=== PATIENT | male | born 1975 | race African-American/Black ===

== ENCOUNTER 2018-05-09 21:50 | Emergency (ER) | payer OTHER, MEDICAID ==
[~2018-05-09] VITALS: Ht 180.3 cm; Wt 188.2 kg
--- NOTE | 2018-05-09 21:50 | NUR ---
Patient BIBA BLS, transferred to bed 4. RN evaluating patient at bedside.
[2018-05-09 21:57] VITALS: BP 131/57
--- NOTE | 2018-05-09 22:00 | NUR ---
PT BIBA C/O BILATERAL LEG EDEMA. PT STATES THAT 2011 HE WAS DX W/ LEG EDEMA, 2009 HE WAS DX WITH SCHIZOPHRENIA AND BIPOLAR, HE HAS BEEN HEARING VOICES SINCE 2009 TO KILL HIMSELF, FOR THE LAST 2 MONTHS THE VOICES HAVE BEEN TELLING HIM TO INGEST ALL HIS MEDICATION AND KILL HIMSELF. --DENIES CP, SOB, LOC, N/V/D. AAOX4. --EDEMA, NON-PITTING, BILATERAL LOWER EXTREMITIES, WARM DRY. PMH: HTN, BIPOLAR, SCHIZOPHRENIA, LOWER EXT. EDEMA
[2018-05-09] MEDS ORDERED: KETOROLAC 60 MG/2 ML VIAL IM ONE (22:05)
--- NOTE | 2018-05-09 22:08 | NUR ---
TelePsych consult ordered as requested by Dr. Gumzan.
--- NOTE | 2018-05-09 22:20 | NUR ---
PT STATES HE IS HOMELESS BUT IS WORKING WITH A SOCIAL WORKING AND WILL BE GETTING HIS "SECTION 8 VOUCHURE VERY SOON". SAILAJA CARLISLE MADE AWARE OF PT STATUS AND SI.
[2018-05-09 22:27] LABS: BASOPHILS # (AUTO) 0.1 K/uL (0.00-0.22); BASOPHILS % (AUTO) 0.6 % (0.0-2.0); EOSINOPHILS # (AUTO) 0.3 K/uL (0-0.4); EOSINOPHILS % (AUTO) 2.8 % (0.0-4.0); HEMATOCRIT 43.1 % (36-52); HEMOGLOBIN 13.8 g/dL (12.0-18.0); LYMPHOCYTES # (AUTO) 2.2 K/uL (2.0-11.5); LYMPHOCYTES % (AUTO) 20.8 % (20.5-51.1); MEAN CORPUSCULAR HEMOGLOBIN 26 pg (27-31); MEAN CORPUSCULAR HGB CONC 32 g/dL (33-37); MEAN CORPUSCULAR VOLUME 81.9 fL (80-94); MONOCYTES # (AUTO) 0.8 K/uL (0.8-1.0); MONOCYTES % (AUTO) 7.9 % (1.7-9.3); NEUTROPHILS # (AUTO) 7.2 K/uL (1.8-7.7); NEUTROPHILS % (AUTO) 67.9 % (42.2-75.2); PLATELET COUNT (AUTO) 193 K/uL (140-450); RED BLOOD CELL COUNT(AUTO) 5.26 MIL/uL (4.20-6.10); RED CELL DISTRIBUTION WIDTH 14.6 % (11.6-13.7); WHITE BLOOD COUNT (AUTO) 10.6 K/uL (4.8-10.8)
[2018-05-09 22:28] LABS: APPEARANCE,URINE CLEAR (CLEAR); BILIRUBIN,URINE NEGATIVE (NEGATIVE); BLOOD, URINE NEGATIVE (NEGATIVE); COLOR,URINE YELLOW (YELLOW); LEUKOCYTE ESTERASE ,URINE TRACE (NEGATIVE); NITRITE, URINE NEGATIVE (NEGATIVE); PH,URINE 8.5 (5.0-9.0); UGLUCOSE NEGATIVE (NEGATIVE)
--- NOTE | 2018-05-09 22:30 | NUR ---
PT PROVIDED JUICE AND ICE WATER UPON REQUEST.
[2018-05-09 22:34] LABS: BARBITURATE, URINE NEG. ng/ml (NEG <=200); BENZODIAZEPINE, URINE NEG. ng/mL (NEG <=200); CANNABINOID, URINE NEG. ng/mL (NEG <=50); COCAINE, URINE NEG. ng/mL (NEG <=300); OPIATE, URINE NEG. ng/mL (NEG <=2000); PHENCYCLIDINE SCREEN,URINE NEG. ng/mL (NEG <=25)
[2018-05-09 22:42] LABS: RBC,URINE NONE SEEN /HPF (0-5); WBC,URINE 0-5 (RARE) /HPF (0-5)
[2018-05-09 22:55] LABS: TOTAL BILIRUBIN 0.6 mg/dL (0.0-1.0)
[2018-05-09 22:56] LABS: CREATININE 1.2 mg/dL (0.7-1.3); GFR ARICAN-AMERICAN 86 mL/min (>90); GLUCOSE 128 mg/dL (74-106); UREA NITROGEN, BLOOD 15 mg/dL (7-18)
[2018-05-09 23:04] LABS: ALBUMIN 3.3 g/dL (3.4-5.0); ANION GAP 11.6 (8-16); ASPARTATE AMINOTRANSFERASE 15 U/L (15-37); CARBON DIOXIDE 29.2 mmol/L (21-32); CHLORIDE 105 mmol/L (98-107); POTASSIUM 3.8 mmol/L (3.5-5.1); SODIUM SERUM 142 mmol/L (136-145)
[2018-05-09 23:05] LABS: ACETAMINOPHEN < 0.5 ug/ml (10-30); SALICYLATE < 2.8 mg/dL (2.8-20.0)
--- NOTE | 2018-05-09 23:24 | NUR ---
Packet has been received, need updated facesheet/insurance to begin calls for voluntary placement.
--- NOTE | 2018-05-10 00:36 | NUR ---
Patient intake/packet has been referred to [facility] 2nd floor. Spoke with chief meteorologist Reagan, packet will be reviewd and chief meteorologist will call and let me know if [facility] can accommodate patient.
--- NOTE | 2018-05-10 00:49 | NUR ---
SPOKE TO [facility] REP, REP TO FAX A DOCUMENT. SAILAJA CARLISLE MADE AWARE
--- NOTE | 2018-05-10 01:27 | NUR ---
CALL FROM ERNESTINE BRAGG AT [facility], FACILITY WILL BE ACCEPTING PT UNDER DR. COCHRAN AND DR. MORENO [facility], SECOND FLOOR, RM 227. REPORT PROVIDED.
--- NOTE | 2018-05-10 02:20 | NUR ---
PT SPEAKING WITH TELEPSYCH DR. RANGEL AT THIS TIME.
--- NOTE | 2018-05-10 02:38 | NUR ---
CALL FROM TELEPSYCH PSYCHIATRIST DR. RANGEL, RECOMMENDATION IS TO BE ADMITTED FOR SI UNTIL STABLE. ER MD MADE AWARE.
--- NOTE | 2018-05-10 04:00 | NUR ---
Patient appears to be resting comfortably in bed. Vital Signs within normal limits. Respirations even and unlabored.
--- NOTE | 2018-05-10 05:15 | NUR ---
Patient appears to be resting comfortably in bed. Vital Signs within normal limits. Respirations even and unlabored.
--- NOTE | 2018-05-10 06:54 | NUR ---
Phone number for [facility]: [phone].
--- NOTE | 2018-05-10 06:57 | NUR ---
PT PROVIDED JUICES AND ICE WATER UPON REQUEST. Patient appears to be resting comfortably in bed. Vital Signs within normal limits. Respirations even and unlabored.
--- NOTE | 2018-05-10 07:14 | NUR ---
Pt report given to Zachery BRAGG. Transfer of care at this time.
--- NOTE | 2018-05-10 07:15 | NUR ---
RECEIVED REPORT FROM KADEEM BRAGG. Patient appears to be resting comfortably in bed. Vital Signs within normal limits. Respirations even and unlabored.WILL CONTINUE TO MONITOR.
--- NOTE | 2018-05-10 07:40 | NUR ---
FOOD TRAY PROVIDED FOR PT WITH STEROFORM AT THIS TIME.
--- NOTE | 2018-05-10 07:45 | NUR ---
PT STATED HIS MEDS: LASIX 40 MG 1 X ONCE DAILY HADOL 5 MG 1X ONEC DAILY METOPROLOL 50 MG 1X ONCE DAILY BENAZEPRIL 20 MG 1X ONCE DAILY FLOMAX 0.4 MG 1X ONCW DAILY
--- NOTE | 2018-05-10 07:51 | NUR ---
PT ATE BREAKFAST 100%. DENIES N/V.
--- NOTE | 2018-05-10 09:35 | NUR ---
Patient appears to be SLEEPING comfortably in bed. Vital Signs within normal limits. Respirations even and unlabored. WILL CONTINUE TO MONITOR.
[2018-05-10] MEDS ORDERED: ACETAMINOPHEN EXTRA STRENGTH 500 MG TAB PO ONE (09:40)
--- NOTE | 2018-05-10 10:40 | NUR ---
Patient to be transferred to . Is being transferred due to [facility]. Receiving facility has accepting physician and available space. ER physician has signed transfer form. Patient or responsible libertarian has agreed to transfer and signed form. Patient belongings inventoried and will be sent with patient. Copy of nursing notes, lab reports, EKG, Physicians Orders and X-rays to be sent with patient. Report called to ERNESTINE at receiving facility. ambulance service has been called for transfer. ETA is 3 HRS.
[2018-05-10 10:44] VITALS: BP 101/61
== END 2018-05-10 10:40 ==
LOC: MED 21:50
DX: R45.851 Suicidal ideations (principal); R44.0 Auditory hallucinations; M79.604 Pain in right leg; M79.605 Pain in left leg; I10 Essential (primary) hypertension; F20.9 Schizophrenia, unspecified; Z88.8 Allergy status to other drugs, medicaments and biological substances
CPT/HCPCS: 36415; 80053; 80305; 81001; 85025; 96372; 99285; G0480; G0482; J1885

== ENCOUNTER 2022-04-14 20:10 | Emergency (ER) | payer OTHER, MEDICAID ==
[~2022-04-14] VITALS: Ht 180.3 cm; Wt 108.9 kg
[2022-04-14 20:10] VITALS: BP 130/86
--- NOTE | 2022-04-14 20:10 | NUR ---
TO LOBBY , BIBA WITH C/O ABD PAIN, RT UPPWER QUADRANT
--- NOTE | 2022-04-14 20:34 | NUR ---
Patient being evaluated by physician
[2022-04-14 21:11] VITALS: BP 130/86
--- NOTE | 2022-04-14 21:11 | NUR ---
Patient discharged with v/s stable. Written and verbal after care instructions given and explained. Patient verbalized understanding. Ambulatory with steady gait. All questions addressed prior to discharge. Advised to follow up with PMD.
== END 2022-04-14 21:11 | disposition home or self-care (01) ==
LOC: MED 20:10
DX: R10.11 Right upper quadrant pain (principal); I10 Essential (primary) hypertension; F17.210 Nicotine dependence, cigarettes, uncomplicated; Z71.6 Tobacco abuse counseling; Z59.00 Homelessness unspecified; Z79.899 Other long term (current) drug therapy
CPT/HCPCS: 99283

== ENCOUNTER 2023-01-20 23:20 | Emergency (ER) | payer OTHER ==
[~2023-01-20] VITALS: Ht 167.6 cm; Wt 173.3 kg
[2023-01-20 23:24] VITALS: BP 129/56; PULSE 66; RESP 20; TEMP 98.1; O2SAT 100
[2023-01-20] MEDS ORDERED: ALBUTEROL SULFATE/IPRATROPIU 3 ML SOL IH ONE (23:40)
[2023-01-20] MEDS ORDERED: HALOPERIDOL 5 MG TAB PO ONE (23:40)
[2023-01-20 23:50] VITALS: PULSE 89; RESP 19; O2SAT 98
[2023-01-21] MEDS ORDERED: ALBUTEROL HFA MDI 90 MCG/ACTUATION 8 GM INH ONE (00:40)
[2023-01-21] MEDS ORDERED: ALBU0.0912 IH ×2 (00:43→01:15)
[2023-01-21] MEDS ORDERED: PRED20TA5 PO ×2 (00:43→01:15)
[2023-01-21 00:48] VITALS: BP 112/31; PULSE 89; RESP 19; TEMP 98; O2SAT 98
== END 2023-01-21 00:48 | disposition left against medical advice (07) ==
LOC: MED 23:20
DX: J45.901 Unspecified asthma with (acute) exacerbation (principal); I10 Essential (primary) hypertension; Z88.8 Allergy status to other drugs, medicaments and biological substances; Z79.899 Other long term (current) drug therapy
CPT/HCPCS: 71045; 93005; 94640; 99283; J1630; J3535; Q0092

== ENCOUNTER 2023-04-21 19:54 | Emergency (ER) | payer OTHER ==
[~2023-04-21 19:54] MED LIST: ALBU0.0912 IH; PRED20TA5 PO
[2023-04-22] MEDS ORDERED: METO50TE2 PO (04:25)
[2023-04-22] MEDS ORDERED: TAMS0.4C96 PO (04:25)
[2023-04-22] MEDS ORDERED: FURO-570 PO (04:25)
[2023-04-22] MEDS ORDERED: INTUBATION KIT MC ONE ×2 (09:33)
== END 2023-04-21 20:26 | disposition left against medical advice (07) ==
LOC: MED 19:54
DX: M79.18 Myalgia, other site (principal); Z53.21 Procedure and treatment not carried out due to patient leaving prior to being seen by health care provider

== ENCOUNTER 2023-04-21 21:39 | Inpatient (IN) | payer OTHER ==
[~2023-04-21] VITALS: Ht 182.9 cm; Wt 175.5 kg
[2023-04-21 21:47] VITALS: BP 124/84; PULSE 75; RESP 20; TEMP 97.2; O2SAT 97
[2023-04-21] MEDS ORDERED: MIDAZOLAM 5 MG/5 ML VIAL ONE (23:43)
[2023-04-21] MEDS ORDERED: MIDAZOLAM 5 MG/1 ML VIAL ONE (23:44)
[2023-04-21] MEDS ORDERED: HALOPERIDOL IM 5 MG/ML VIAL IM ONE (23:55)
[2023-04-21] MEDS ORDERED: MIDAZOLAM 2 MG/2 ML VIAL IM ONE (23:55)
[2023-04-22] MEDS: MIDAZOLAM 2 MG/2 ML VIAL IM ONE ×2 (00:10→00:31)
[2023-04-22 00:17] LABS: BASOPHILS # (AUTO) 0.1 K/uL (0.00-0.22); BASOPHILS % (AUTO) 0.7 % (0.0-2.0); EOSINOPHILS # (AUTO) 0.1 K/uL (0-0.4); EOSINOPHILS % (AUTO) 0.5 % (0.0-4.0); HEMATOCRIT 36.6 % (36-52); HEMOGLOBIN 11.9 g/dL (12.0-18.0); LYMPHOCYTES # (AUTO) 2.3 K/uL (2.0-11.5); LYMPHOCYTES % (AUTO) 13.9 % (20.5-51.1); MEAN CORPUSCULAR HEMOGLOBIN 27 pg (27-31); MEAN CORPUSCULAR HGB CONC 33 g/dL (33-37); MEAN CORPUSCULAR VOLUME 82.6 fL (80-94); MONOCYTES # (AUTO) 1.6 K/uL (0.8-1.0); MONOCYTES % (AUTO) 9.6 % (1.7-9.3); NEUTROPHILS # (AUTO) 12.7 K/uL (1.8-7.7); NEUTROPHILS % (AUTO) 75.3 % (42.2-75.2); PLATELET COUNT (AUTO) 219 K/uL (140-450); RED BLOOD CELL COUNT(AUTO) 4.44 MIL/uL (4.20-6.10); WHITE BLOOD COUNT (AUTO) 16.8 K/uL (4.8-10.8)
[2023-04-22 00:29] LABS: ANION GAP 18.1 (8-16); CALCIUM 8.6 mg/dL (8.5-10.1); CARBON DIOXIDE 19.5 mmol/L (21-32); POTASSIUM 3.6 mmol/L (3.5-5.1)
[2023-04-22 00:34] LABS: ALBUMIN 3.6 g/dL (3.4-5.0); TOTAL BILIRUBIN 0.2 mg/dL (0.0-1.0); TOTAL PROTEIN, SERUM 7.7 g/dL (6.4-8.2)
[2023-04-22 00:35] LABS: ALCOHOL, BLOOD < 3 mg/dL (<10); MAGNESIUM 2.1 mg/dL (1.8-2.4)
[2023-04-22 02:12] LABS: ACETAMINOPHEN < 0.5 ug/ml (10-30)
[2023-04-22 02:13] LABS: SALICYLATE 39.6 mg/dL (2.8-20.0)
[2023-04-22 02:14] LABS: AMPHETAMINE, URINE POSITIVE ng/ml (NEG <=1000); BARBITURATE, URINE NEGATIVE ng/ml (NEG <=200); BENZODIAZEPINE, URINE NEGATIVE ng/mL (NEG <=200)
[2023-04-22 02:15] LABS: CANNABINOID, URINE NEGATIVE ng/mL (NEG <=50); COCAINE, URINE NEGATIVE ng/mL (NEG <=300); OPIATE, URINE NEGATIVE ng/mL (NEG <=2000); PHENCYCLIDINE SCREEN,URINE NEGATIVE ng/mL (NEG <=25)
[2023-04-22] MEDS ORDERED: NACL 0.9% 500 ML IV ONE (02:55)
[2023-04-22 03:03] LABS: ANION GAP 17.2 (8-16); CALCIUM 8.2 mg/dL (8.5-10.1); CARBON DIOXIDE 18.6 mmol/L (21-32); CREATININE 2.3 mg/dL (0.6-1.3); POTASSIUM 3.8 mmol/L (3.5-5.1)
[2023-04-22] MEDS ORDERED: SODIUM BICARBONATE 8.4% 50 MEQ in DEXTROSE 5% 1,000 ML IV SCH (03:30)
[2023-04-22] MEDS ORDERED: SODIUM BICARBONATE 8.4% PFS 50 MEQ/50 ML SYR IVP ONE (03:43)
[2023-04-22] MEDS ORDERED: FURO-570 PO (04:25)
[2023-04-22] MEDS ORDERED: METO50TE2 PO (04:25)
[2023-04-22] MEDS ORDERED: TAMS0.4C96 PO (04:25)
[2023-04-22] MEDS ORDERED: ROCURONIUM 50 MG/5 ML VIAL IV ONE (08:00)
[2023-04-22] MEDS ORDERED: ETOMIDATE 20 MG/10 ML VIAL IVP ONE (08:00)
[2023-04-22] MEDS ORDERED: THIAMINE 100 MG TAB PO SCH (09:00)
[2023-04-22] MEDS ORDERED: FOLIC ACID 1 MG TAB PO SCH (09:00)
[2023-04-22] MEDS ORDERED: chlordiazePOXIDE 25 MG CAP PO SCH (09:00)
[2023-04-22] MEDS ORDERED: AZITHROMYCIN 500 MG in DEXTROSE 5% 250 ML IV SCH (09:00)
[2023-04-22] MEDS ORDERED: INTUBATION KIT MC ONE (09:40)
[2023-04-22] MEDS ORDERED: ROCURONIUM 50 MG/5 ML VIAL IV SCH (09:50)
[2023-04-22] MEDS ORDERED: ETOMIDATE 20 MG/10 ML VIAL IVP SCH (09:50)
[2023-04-22 14:06] VITALS: BP 117/60; PULSE 48; RESP 20; TEMP 97.8; O2SAT 99
== END 2023-04-22 10:05 | DRG 917 ==
LOC: MED 21:39 → MTU 04-22 04:25 → MED 04-22 04:25
PROVIDERS: ADMIT Family Medicine; ATTEND Family Medicine
PROC: 5A12012 Performance of Cardiac Output, Single, Manual (ICD-10-PCS; principal; 2023-04-22)
PROC: 0BH18EZ Insertion of Endotracheal Airway into Trachea, Via Natural or Artificial Opening Endoscopic (ICD-10-PCS; 2023-04-22)
DX: T39.011A Poisoning by aspirin, accidental (unintentional), initial encounter (principal); J81.0 Acute pulmonary edema; N17.9 Acute kidney failure, unspecified; I10 Essential (primary) hypertension; I48.91 Unspecified atrial fibrillation; I46.9 Cardiac arrest, cause unspecified; F15.10 Other stimulant abuse, uncomplicated; Z79.899 Other long term (current) drug therapy; Z88.8 Allergy status to other drugs, medicaments and biological substances; Z79.01 Long term (current) use of anticoagulants; Y92.89 Other specified places as the place of occurrence of the external cause
CPT/HCPCS: 36415; 71045; 80048; 80053; 80305; 82803; 83735; 83880; 84100; 84484; 85025; 92950; 93005; 96360; 96372; 99291; G0480; G0482; J0456; J0696; J1630; J2250; J3490; J7060; Q0092